=== PATIENT | female | born 1985 | race Caucasian/White ===

== ENCOUNTER 2020-01-19 19:08 | Emergency (ER) | payer BC ==
[~2020-01-19] VITALS: Ht 162.6 cm; Wt 62.6 kg
--- NOTE | 2020-01-19 19:21 | NUR ---
ED Nurse Note: pt presents to ED with a L ankle lac. pt reports that she was trying to use her leg to close her metal gate and it cut her behind the ankle. pain is exacerbated by bearing weight or trying to move her ankle.
[2020-01-19 19:23] VITALS: BP 124/79
[2020-01-19] MEDS ORDERED: Tetanus/Diptheria/Pertussis IM ONE (19:45)
--- NOTE | 2020-01-19 20:04 | NUR ---
ED Nurse Note: pt's L ankle was cleaned, closed and dressed. pt tolerated well
--- NOTE | 2020-01-19 20:05 | Diagnostic Imaging Report ---
EXAM: XR Left Ankle Complete, 3 or More Views CLINICAL HISTORY: TRAUMA TECHNIQUE: Frontal, lateral and oblique views of the left ankle. COMPARISON: No relevant prior studies available. FINDINGS: Bones/joints: Unremarkable. No acute fracture. No dislocation. The joint spaces are intact. Soft tissues: Unremarkable. No radiopaque foreign body. IMPRESSION: Unremarkable left ankle x-rays.
--- NOTE | 2020-01-19 20:15 | Emergency Room Report ---
History of Present Illness General Chief Complaint: Laceration Source: Patient Present Illness Allergies: Coded Allergies: No Known Allergies (Unverified , 01/19/20) COVID-19 Screening Contact w/high risk pt: No Experienced COVID-19 symptoms?: No COVID-19 Testing performed JINRIKSHA DRIVER: No Patient History Last Menstrual Period: 11/2019 Nursing Documentation-[facility] Past Medical History: No Stated History Review of Systems All Other Systems: negative except mentioned in HPI Physical Exam Vital Signs Date Time Temp Pulse Resp B/P (MAP) Pulse Ox O2 Delivery O2 Flow Rate FiO2 01/19/20 19:14 98.8 65 16 124/79 (94) 97 Room Air Sp02 EP Interpretation: reviewed, normal General Appearance: no apparent distress, alert, GCS 15, non-toxic Head: normocephalic, atraumatic Eyes: bilateral eye normal inspection, bilateral eye PERRL ENT: hearing grossly normal, normal pharynx, no angioedema, normal voice Neck: full range of motion, supple/symm/no masses Respiratory: chest non-tender, lungs clear, normal breath sounds, speaking full sentences Cardiovascular #1: regular rate, rhythm, no edema Cardiovascular #2: 2+ dorsalis pedis (R), 2+ dorsalis pedis (L) Gastrointestinal: soft Musculoskeletal: back normal, no calf tenderness, Boogie's Sign negative, non- tender, other - negative hammond's , neurovascularly intact Neurologic: alert, motor strength/tone normal, oriented x3, sensory intact, responsive, speech normal Psychiatric: judgement/insight normal, memory normal, mood/affect normal, no suicidal/homicidal ideation Skin: laceration - avulsion lac left posterior ankle Lymphatic: no adenopathy Procedures Splinting Splinting : Consent: Verbal Location: left ankle Hand-Made Type: plaster Pre-Proc Neuro Vasc Exam: normal Post-Proc Neuro Vasc Exam: normal Patient Tolerated: Well Complications: None Laceration/Wound Repair Laceration/Wound Repair : Consent: Verbal Wound Location: lower extremity - left posterior ankle Wound's Depth, Shape: superficial Wound Length (cm): 1 Wound Explored: clean Betadine Prep?: Yes Wound Repaired With: Dermabond Layer Closure?: Yes Sterile Dressing Applied?: Yes Splint Applied?: Yes Type of Splint Applied: metal vinayak Sling Applied?: Yes Patient Tolerated: Well Complications: None Medical Decision Making PA Attestation All my diagnosis and treatment plans were reviewed ad discussed with my [facility] physician Dr. Chance Diagnostic Impression: Primary Impression: Laceration of ankle ER Course 51-year-old male with history of gout currently on allopurinol however has not taken it for over a month due to running out of medication here complaining of gout attack x2-day right knee. Reports that he had some alcohol and red meat 2 days ago. Reports that usually Medrol Dosepak indomethacin helped him with acute attacks. Denies any headache or dizziness. Denies fever chills, chest pain, shortness of breath, calf tenderness. Denies any tingling or numbness. Ddx considered but are not limited to : Superficial laceration, deep laceration, tendon involvement with laceration, laceration with foreign body Vital signs: are WNL, pt. is afebrile H&PE are most consistent with: Left ankle superficial avulsion laceration ORDERS: Left ankle x-ray, Augmentin, Motrin, mupirocin ointment ED INTERVENTIONS: Tdap, splint applied DISCHARGE: At this time pt. is stable for d/c to home. Will provide printed patient care instructions, and any necessary prescriptions. Care plan and follow up instructions have been discussed with the patient prior to discharge. Patient take medication as directed, follow primary care provider, wound should not get wet in 48 hours, splint can be taken off when at home and not ambulating, mupirocin ointment to be applied in 2 days. If worsening symptoms return to the emergency room. Also follow-up specialist, as well as MRI if needed Other X-Ray Diagnostic Results Other X-Ray Diagnostic Results : X-Ray ordered: Left ankle # of Views/Limited Vs Complete: 3 View Indication: Pain EP Interpretation: Yes PA Xray: Interpretation reviewed, by supervising MD, and agrees with findings. Interpretation: no dislocation, no soft tissue swelling, no fractures Impression: No acute disease Electronically Signed by: Maribel Fontanez Text COMPARISON: No relevant prior studies available. FINDINGS: Bones/joints: Unremarkable. No acute fracture. No dislocation. The joint spaces are intact. Soft tissues: Unremarkable. No radiopaque foreign body. IMPRESSION: Last Vital Signs Date Time Temp Pulse Resp B/P (MAP) Pulse Ox O2 Delivery O2 Flow Rate FiO2 01/19/20 19:23 98.8 16 124/79 97 Room Air 01/19/20 19:14 65 Disposition: HOME, SELF-CARE Condition: Stable Scripts Mupirocin* (MUPIROCIN*) 22 Gm Oint...g. 1 APPLIC TOPIC THREE TIMES A DAY, #22 GM Prov: Maribel Murray 01/19/20 Ibuprofen* (MOTRIN*) 600 Mg Tablet 600 MG ORAL Q6H PRN for For Pain, #30 TAB 0 Refills Prov: Maribel Murray 01/19/20 Amoxicillin/Potassium Clav 875-125* (AUGMENTIN 875-125 TABLET*) 1 Each Tablet 1 TAB ORAL TWICE A DAY for 7 Days, #14 TAB Prov: Maribel Murray 01/19/20 Patient Instructions: Laceration Care, Adult Additional Instructions: Patient take medication as directed, follow primary care provider, wound should not get wet in 48 hours, splint can be taken off when at home and not ambulating, mupirocin ointment to be applied in 2 days. If worsening symptoms return to the emergency room. Also follow-up specialist, as well as MRI if needed Maribel Murray Jan 19, 2020 20:15
[2020-01-19] MEDS ORDERED: MUPIROCIN22 GM TOPIC (20:16)
[2020-01-19] MEDS ORDERED: AUGMENTIN 875-1 EAC1 ORAL (20:16)
[2020-01-19] MEDS ORDERED: IBUPROFEN600 M1 ORAL (20:16)
[2020-01-19 20:35] VITALS: BP 124/79
--- NOTE | 2020-01-19 20:35 | NUR ---
ER DISCHARGE NOTE: Patient is cleared to be discharged per ERMD, pt is aox4, on room air, with stable vital signs. pt was given dc and prescription instructions, pt was able to verbalize understanding, pt id band removed without complications. pt is able to ambulate with steady gait. pt took all belongings.
== END 2020-01-19 20:40 | disposition home or self-care (01) ==
LOC: EMR 19:30
DX: S91.012A Laceration without foreign body, left ankle, initial encounter (principal); Z23 Encounter for immunization; M10.9 Gout, unspecified; X58.XXXA Exposure to other specified factors, initial encounter; Y92.9 Unspecified place or not applicable
CPT/HCPCS: 90471; 90715; 99283